=== PATIENT | female | born 1980 | race Caucasian/White ===

== ENCOUNTER 2021-07-29 19:28 | Emergency (ER) | payer OTHER ==
[~2021-07-29 19:28] MED LIST: BENTYL 20MG TAB20 MG PO; ZOFRAN4 MG PO
[2021-07-29 20:07] LABS: HEMOGLOBIN 16.7 gm/dl (12.3-15.3); RED BLOOD COUNT 5.2 M/UL (4.00-5.10); WHITE BLOOD COUNT 11.4 K/UL (4.5-11.0)
[2021-07-29 20:31] LABS: BUN/CREATININE RATIO 41 (0-10)
== END 2021-07-29 21:46 | disposition left against medical advice (07) ==
LOC: ER1 19:28
PROVIDERS: Physician Assistant
DX: M25.511 Pain in right shoulder (principal); E11.9 Type 2 diabetes mellitus without complications; E78.5 Hyperlipidemia, unspecified; I10 Essential (primary) hypertension; F17.200 Nicotine dependence, unspecified, uncomplicated; Z88.6 Allergy status to analgesic agent
CPT/HCPCS: 71045; 80053; 82550; 82553; 83690; 84484; 85025; 85379; 93005; 99283